=== PATIENT | female | born 1995 | race African-American/Black ===

== ENCOUNTER 2019-01-23 20:32 | Emergency (ER) | payer OTHER ==
[2019-01-23 21:36] LABS: Absolute Lymphocytes (CBC) 3.2 K/uL (0.7-4.9); Basophils % 0.9 % (0-1.3); Hematocrit 35.2 % (36.0-45.0); Lymphocytes % 32.6 % (15.3-44.8); RBC Red Blood Cell Count 4.13 M/uL (3.86-4.86)
[2019-01-23 21:55] LABS: ALT/SGPT 18 U/L (12-78); AST/SGOT 15 U/L (15-37); Albumin 3.5 g/dL (3.4-5.0); Alkaline Phosphatase 69 U/L (45-117); BUN Blood Urea Nitrogen 11 mg/dL (7-18); Bicarbonate 25 mmol/L (21-32); Bilirubin Direct < 0.1 mg/dL (0-0.2); Bilirubin Total 0.1 mg/dL (0.2-1.0); Glucose Level 99 mg/dL (74-106); Potassium 3.6 mmol/L (3.5-5.1); Protein, Total 7.5 g/dL (6.4-8.2); Sodium Level 140 mmol/L (136-145); Troponin (Emerg Dept Use Only) < 0.02 ng/mL (0.0-0.045)
[2019-01-23 22:25] LABS: Urine Blood 2+ (NEG); Urine Glucose NEGATIVE (NEG); Urine Protein NEGATIVE (NEG); Urine Specific Gravity 1.025 (1.005-1.030); Urine pH 6.5 (5.0-7.0)
--- NOTE | 2019-01-23 23:17 | EDPHYS ---
Physician Documentation [facility] Name: Paige Riley Age: 23 yrs Sex: Female : 1995 Arrival Date: 01/23/2019 Time: 20:36 Bed 18 Private MD: ED Physician Rayray Pillai HPI: 01/23 21:39 This 23 yrs old Black Female presents to ER via Ambulatory with complaints of Chest pm1 Pain, with burning x3 days. 21:39 The patient or guardian reports chest pain that is located primarily in the mid-sternal pm1 area. The pain does not radiate. Associated signs and symptoms: Pertinent negatives: cough, headache, nausea, shortness of breath, vomiting. The chest pain is described as burning. Duration: The patient or guardian reports a single episode, that is still ongoing. Modifying factors: The symptoms are alleviated by nothing. the symptoms are aggravated by nothing. Severity of pain: in the emergency department the pain is unchanged. The patient has not experienced similar symptoms in the past. The patient has not recently seen a physician. Historical: - Allergies: 20:43 No Known Allergies; la1 - PMHx: 20:43 None; la1 - Immunization history:: Adult Immunizations up to date. - Social history:: Smoking status: Patient/guardian denies using tobacco. - Ebola Screening: : No symptoms or risks identified at this time. ROS: 21:39 Constitutional: Negative for fever, chills, and weight loss, Eyes: Negative for injury, pm1 pain, redness, and discharge, ENT: Negative for injury, pain, and discharge, Neck: Negative for injury, pain, and swelling. 21:39 Respiratory: Negative for shortness of breath, cough, wheezing, and pleuritic chest pain, Abdomen/GI: Negative for abdominal pain, nausea, vomiting, diarrhea, and constipation, Back: Negative for injury and pain, : Negative for injury, bleeding, discharge, and swelling, MS/Extremity: Negative for injury and deformity, Skin: Negative for injury, rash, and discoloration, Neuro: Negative for headache, weakness, numbness, tingling, and seizure. 21:39 Cardiovascular: Positive for chest pain, Negative for edema, orthopnea, palpitations. Exam: 21:39 Constitutional: This is a well developed, well nourished patient who is awake, alert, pm1 and in no acute distress. Head/Face: Normocephalic, atraumatic. Neck: Trachea midline, no thyromegaly or masses palpated, and no cervical lymphadenopathy. Supple, full range of motion without nuchal rigidity, or vertebral point tenderness. No Meningismus. Cardiovascular: Regular rate and rhythm with a normal S1 and S2. No gallops, murmurs, or rubs. Normal PMI, no JVD. No pulse deficits. Respiratory: Lungs have equal breath sounds bilaterally, clear to auscultation and percussion. No rales, rhonchi or wheezes noted. No increased work of breathing, no retractions or nasal flaring. 21:39 Abdomen/GI: Soft, non-tender, with normal bowel sounds. No distension or tympany. No guarding or rebound. No evidence of tenderness throughout. Back: No spinal tenderness. No costovertebral tenderness. Full range of motion. Skin: Warm, dry with normal turgor. Normal color with no rashes, no lesions, and no evidence of cellulitis. MS/ Extremity: Pulses equal, no cyanosis. Neurovascular intact. Full, normal range of motion. 21:39 Chest/axilla: Inspection: normal, Palpation: tenderness, of the mid-sternal area, that totally reproduces the patient's complaints. 21:39 Neuro: Orientation: is normal, Motor: is normal, moves all fours, Sensation: is normal, no obvious gross deficits, Gait: is steady, at a normal pace, without difficulty. Vital Signs: 20:43 BP 168 / 92; Pulse 98; Resp 16; Temp 97.5; Pulse Ox 98% on R/A; Weight 90.72 kg; Height la1 5 ft. 7 in. (170.18 cm); 22:36 BP 133 / 99; Pulse 81; Resp 16; Pulse Ox 100% on R/A; tr5 20:43 Body Mass Index 31.32 (90.72 kg, 170.18 cm) la1 MDM: 21:13 Patient medically screened. pm1 23:14 Data reviewed: vital signs. Data interpreted: Pulse oximetry: on room air is 100 %. pm1 Interpretation: normal. Counseling: I had a detailed discussion with the patient and/or guardian regarding: the historical points, exam findings, and any diagnostic results supporting the discharge/admit diagnosis, lab results, radiology results, the need for outpatient follow up, to return to the emergency department if symptoms worsen or persist or if there are any questions or concerns that arise at home. 01/24 00:00 ED course: resolution of pain with GI cocktail. pm1 01/23 21:13 Order name: Basic Metabolic Panel; Complete Time: 22:19 pm1 01/23 21:13 Order name: CBC with Diff; Complete Time: 22:19 pm1 01/23 21:13 Order name: LFT's; Complete Time: 22:19 pm1 01/23 21:13 Order name: Troponin (emerg Dept Use Only); Complete Time: 22:19 pm1 01/23 21:42 Order name: CBC Smear Scan EDMS 01/23 22:18 Order name: Urine Dipstick--Ancillary (enter results); Complete Time: 23:14 mw2 01/23 21:13 Order name: XRAY Chest (1 view) pm1 01/23 21:13 Order name: EKG; Complete Time: 21:17 pm1 01/23 21:13 Order name: Cardiac monitoring; Complete Time: 21:15 pm1 01/23 21:13 Order name: EKG - Nurse/Tech; Complete Time: 21:15 pm1 01/23 21:13 Order name: IV Saline Lock; Complete Time: 21:15 pm1 01/23 21:13 Order name: Labs collected and sent; Complete Time: 21:15 pm1 01/23 21:13 Order name: O2 Per Protocol; Complete Time: 21:15 pm1 01/23 21:13 Order name: O2 Sat Monitoring; Complete Time: 21:15 pm1 01/23 21:13 Order name: Urine Dipstick-Ancillary (obtain specimen); Complete Time: 22:07 pm1 01/23 21:13 Order name: Urine Test (obtain specimen); Complete Time: 22:06 pm1 Administered Medications: 01/23 23:51 Drug: GI Cocktail without - (Maalox Suspension 30 ml, Lidocaine Liquid 2 % 15 tr5 ml) Route: PO; Disposition: 01/24 02:37 Co-signature as Attending Physician, Rayray Pillai MD. Disposition: 01/23/19 23:15 Discharged to Home. Impression: Chest pain, unspecified. - Condition is Stable. - Discharge Instructions: Nonspecific Chest Pain. - Medication Reconciliation Form, Thank You Letter, Antibiotic Education, Prescription Opioid Use form. - Follow up: Emergency Department; When: As needed; Reason: Worsening of condition. Follow up: Private Physician; When: 2 - 3 days; Reason: Recheck today's complaints, Continuance of care, Re-evaluation by your physician. - Problem is new. - Symptoms have improved. Signatures: Dispatcher [employer] EDKY Arpan Sheriff RN RN la1 Isiah Toure, SUPERVISOR SCREEN PRINTING SUPERVISOR SCREEN PRINTING pm1 Rayray Pillai MD MD gs Rodriguez, Tommie, RN RN tr5 Corrections: (The following items were deleted from the chart) 00:06 01/23 23:15 01/23/2019 23:15 Discharged to Home. Impression: Chest pain, unspecified. tr5 Condition is Stable. Forms are Medication Reconciliation Form, Thank You Letter, Antibiotic Education, Prescription Opioid Use. Follow up: Emergency Department; When: As needed; Reason: Worsening of condition. Follow up: Private Physician; When: 2 - 3 days; Reason: Recheck today's complaints, Continuance of care, Re-evaluation by your physician. Problem is new. Symptoms have improved. pm1
--- NOTE | 2019-01-23 23:17 | ER ---
Nurse's Notes [facility] Name: Paige Riley Age: 23 yrs Sex: Female : 1995 Arrival Date: 01/23/2019 Time: 20:36 Bed 18 Private MD: Diagnosis: Chest pain, unspecified Presentation: 01/23 20:42 Presenting complaint: Patient states: burning pain in my chest for the last three days la1 and my heart feels like its beating fast. Transition of care: patient was not received from another setting of care. Onset of symptoms was January 23, 2019. Risk Assessment: Do you want to hurt yourself or someone else? Patient reports no desire to harm self or others. Initial Sepsis Screen: Does the patient meet any 2 criteria? No. Patient's initial sepsis screen is negative. Does the patient have a suspected source of infection? No. Patient's initial sepsis screen is negative. Care prior to arrival: None. 20:42 Method Of Arrival: Ambulatory la1 20:42 Acuity: AKBAR 3 la1 Historical: - Allergies: 20:43 No Known Allergies; la1 - PMHx: 20:43 None; la1 - Immunization history:: Adult Immunizations up to date. - Social history:: Smoking status: Patient/guardian denies using tobacco. - Ebola Screening: : No symptoms or risks identified at this time. Screenin:45 Abuse screen: Denies threats or abuse. Nutritional screening: No deficits noted. tr5 Tuberculosis screening: No symptoms or risk factors identified. Fall Risk None identified. Assessment: 20:56 General: Appears comfortable, Behavior is calm, cooperative. Pain: Complains of pain in tr5 anterior aspect of left upper chest, mid-sternal area and left breast Pain radiates to left scapular area Pain began 2-3 days ago. Is intermittent, Alleviated by repositioning, Aggravated by increased activity. Neuro: Level of Consciousness is awake, alert, Oriented to person, place, time, Swimming Pool Maintenance are equal bilaterally. Cardiovascular: Heart tones present Bruits absent Capillary refill < 3 seconds Pulses are all present. Edema is absent. Cardiovascular: Reports chest pain. Respiratory: Airway is patent Trachea midline Respiratory effort is even, unlabored, Respiratory pattern is regular, symmetrical, Breath sounds are clear bilaterally. GI: No signs and/or symptoms were reported involving the gastrointestinal system. : No signs and/or symptoms were reported regarding the genitourinary system. EENT: No signs and/or symptoms were reported regarding the EENT system. Derm: No signs and/or symptoms reported regarding the dermatologic system. Skin is intact, Skin is dry, Skin is normal. Musculoskeletal: Capillary refill < 3 seconds, Range of motion: intact in all extremities. 21:43 Reassessment: Patient and/or family updated on plan of care and expected duration. Pain tr5 level reassessed. Patient is alert, oriented x 3, equal unlabored respirations, skin warm/dry/pink. 22:35 Reassessment: Patient and/or family updated on plan of care and expected duration. Pain tr5 level reassessed. Patient is alert, oriented x 3, equal unlabored respirations, skin warm/dry/pink. Patient denies pain at this time. Vital Signs: 20:43 BP 168 / 92; Pulse 98; Resp 16; Temp 97.5; Pulse Ox 98% on R/A; Weight 90.72 kg; Height la1 5 ft. 7 in. (170.18 cm); 22:36 BP 133 / 99; Pulse 81; Resp 16; Pulse Ox 100% on R/A; tr5 20:43 Body Mass Index 31.32 (90.72 kg, 170.18 cm) la1 ED Course: 20:36 Patient arrived in ED. es 20:40 EKG done, by ED staff. tr5 20:43 Triage completed. la1 20:43 Arm band placed on right wrist. la1 20:45 Placed in gown. Bed in low position. Call light in reach. Side rails up X 1. Cardiac tr5 monitor on. Pulse ox on. NIBP on. Door closed. Noise minimized. 20:47 Jose Carey, BRANDEN is Primary Nurse. tr5 21:09 Isiah Toure NP is PHCP. pm1 21:09 Rayray Pillai MD is Attending Physician. pm1 21:20 Inserted saline lock: 22 gauge in left antecubital area, using aseptic technique. tr5 21:30 Initial lab(s) drawn, by me, sent to lab. tr5 21:44 Awaiting lab results. tr5 21:46 Assisted to bathroom. tr5 22:09 Urine collected: clean catch specimen, clear. tr5 22:32 XRAY Chest (1 view) In Process Unspecified. EDMS 22:38 Awaiting radiology results. tr5 Administered Medications: 23:51 Drug: GI Cocktail without - (Maalox Suspension 30 ml, Lidocaine Liquid 2 % 15 tr5 ml) Route: PO; Outcome: 23:15 Discharge ordered by . pm1 01/24 00:06 Patient left the ED. tr5 Signatures: Dispatcher [employer] EDMS Christy Mittal Lee, RN RN la1 Isiah Toure, PRODUCE ASSISTANT PRODUCE ASSISTANT pm1 Jose Carey RN RN tr5 Corrections: (The following items were deleted from the chart) 01/23 22:39 22:38 Awaiting re-evaluation by ER provider, tr5 tr5
[2019-01-23] MEDS ORDERED: LIDOCAINE VISCOUS 2% SOLN 15 ML UDC ONE (23:53)
[2019-01-23] MEDS ORDERED: MAGNE/ALUM HYDROXD 30 ML UCUP ONE (23:53)
--- NOTE | 2019-01-24 09:14 | RAD REPORT ---
EXAM DESCRIPTION: RAD - Chest Single View - 01/23/2019 10:28 pm CLINICAL HISTORY: Chest pain COMPARISON: None. TECHNIQUE: AP portable chest image was obtained 2221 hours . FINDINGS: Lungs are clear. Heart and vasculature are normal. No measurable pleural effusion and no p neumothorax. No acute bony abnormality seen. No acute aortic findings suspected. IMPRESSION: No acute cardiopulmonary process.
--- NOTE | 2019-01-24 10:20 | EKG ---
Test Date: 2019-01-23 Test Time: 21:05:03 Sheet Metal Fabricator: NEIDA MEASUREMENT RESULTS: Intervals: Rate: 93 VT: 160 QRSD: 90 QT: 362 QTc: 450 [place]: P: 108 VT: 160 QRS: 139 T: 140 INTERPRETIVE STATEMENTS: Suspect arm lead reversal, interpretation assumes no reversal Normal sinus rhythm Right axis deviation Abnormal ECG No previous ECG available for comparison Electronically Signed On 01-24-19 10:20:19 CDT by Asher Rice
== END 2019-01-24 00:06 | disposition home or self-care (01) ==
LOC: ER 20:32
DX: R07.9 Chest pain, unspecified (principal)
CPT/HCPCS: 36415; 71045; 80048; 80076; 81003; 84484; 85025; 93005; 99284

== ENCOUNTER 2021-08-23 17:07 | Emergency (ER) | payer OTHER, SELFPAY ==
--- NOTE | 2021-08-23 18:13 | EDPHYS ---
Physician Documentation [facility] Name: Paige Riley Age: 26 yrs Sex: Female : 1995 Arrival Date: 08/23/2021 Time: 17:10 Bed 12 Private MD: ED Physician Gatito Asencio HPI: 08/23 17:22 This 26 yrs old Black Female presents to ER via Ambulatory with complaints of Tonsils cp swollen/painful. 17:22 The patient presents with sore throat. cp 17:22 Onset: The symptoms/episode began/occurred 2 day(s) ago. Associated signs and symptoms: cp Pertinent positives: earache, Pertinent negatives cough, fever, flu-like symptoms, headache. Patient reports history of right side tonsillar abscess that required drainage. 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 - Social history:: Smoking status: Patient denies any tobacco usage or history of. Patient/guardian denies using alcohol. ROS: 17:22 Eyes: Negative for injury, pain, redness, and discharge. cp 17:22 Constitutional: Negative for body aches, chills, fever, poor PO intake. 17:22 ENT: Positive for ear pain, sore throat, Negative for drainage from ear(s), difficulty swallowing, difficulty handling secretions. 17:22 Cardiovascular: Negative for chest pain. 17:22 Respiratory: Negative for cough, shortness of breath, wheezing. 17:22 Abdomen/GI: Negative for abdominal pain, nausea, vomiting, and diarrhea. 17:22 Neuro: Negative for altered mental status, headache, weakness. 17:22 All other systems are negative. Exam: 17:25 Head/Face: Normocephalic, atraumatic. cp 17:25 Constitutional: The patient appears in no acute distress, alert, awake, non-toxic, well developed, well nourished. 17:25 Eyes: Periorbital structures: appear normal, Conjunctiva: normal, no exudate, no injection, Sclera: no appreciated abnormality, Lids and lashes: appear normal, bilaterally. 17:25 ENT: External ear(s): are unremarkable, Ear canal(s): are normal, clear, TM's: dullness, bilaterally, Nose: is normal, Mouth: Lips: moist, Oral mucosa: moist, Tongue: is normal, Posterior pharynx: Airway: no evidence of obstruction, patent, Tonsils: with erythema, right enlarged, no exudate, Uvula: midline, erythema, that is mild, exudate, is not appreciated, Voice: is normal. 17:25 Neck: ROM/movement: is normal, is supple, without pain, no range of motions limitations, no meningismus. 17:25 Chest/axilla: Inspection: normal. 17:25 Cardiovascular: Rate: tachycardic. 17:25 Respiratory: the patient does not display signs of respiratory distress, Respirations: normal, no use of accessory muscles, no retractions, labored breathing, is not present. Vital Signs: 17:15 BP 162 / 105; Pulse 104; Resp 18; Temp 98.1(O); Pulse Ox 99% on R/A; Weight 91.63 kg; ld1 Height 5 ft. 7 in. (170.18 cm); Pain 6/10; 17:15 Body Mass Index 31.64 (91.63 kg, 170.18 cm) ld1 MDM: 17:17 Patient medically screened. cp 17:45 Differential diagnosis: group A strep tonsillitis, mononucleosis, peritonsillar abscess cp pharyngitis, retropharyngeal abcess tonsillitis, uvulitis. 18:12 Data reviewed: vital signs, nurses notes, lab test result(s). cp 18:12 Counseling: I had a detailed discussion with the patient and/or guardian regarding: the cp historical points, exam findings, and any diagnostic results supporting the discharge/admit diagnosis, lab results, to return to the emergency department if symptoms worsen or persist or if there are any questions or concerns that arise at home. 08/23 17:41 Order name: Group A Streptococcus Rapid Sc EDMS Administered Medications: No medications were administered Disposition: 20:43 Co-signature as Attending Physician, Gatito Asencio DO I agree with the assessment and ms3 plan of care. Disposition Summary: 08/23/21 18:13 Discharge Ordered Location: Home cp Problem: new cp Symptoms: are unchanged cp Condition: Stable cp Diagnosis - Acute tonsillitis, unspecified cp Followup: cp - With: Private Physician - When: 2 - 3 days - Reason: Worsening of condition Discharge Instructions: - Discharge Summary Sheet cp - Tonsillitis cp Forms: - Medication Reconciliation Form cp - Thank You Letter cp - Antibiotic Education cp - Prescription Opioid Use cp Prescriptions: - Augmentin 875-125 mg Oral Tablet - take 1 tablet by ORAL route every 12 hours for 10 days; 20 tablet; Refills: 0, cp Product Selection Permitted Signatures: Dispatcher [employer] EDMS Matti Alexandra PA PA cp Sims, Marcus, DO DO ms3 Concha Blakely RN RN ld1 Corrections: (The following items were deleted from the chart) 18:03 17:58 Throat Culture ordered. EDMS EDMS
--- NOTE | 2021-08-23 18:13 | ER ---
Nurse's Notes [facility] Name: Paige Riley Age: 26 yrs Sex: Female : 1995 Arrival Date: 08/23/2021 Time: 17:10 Bed 12 Private MD: Diagnosis: Acute tonsillitis, unspecified Presentation: 08/23 17:15 Chief complaint: Patient states: Went to ER 07/31/2021 in clear jaeger due to tonsil ld1 abscess - cut it open, received medications. Now throat is hurting. Coronavirus screen: At this time, the client does not indicate any symptoms associated with coronavirus-19. Ebola Screen: No symptoms or risks identified at this time. Initial Sepsis Screen: Does the patient meet any 2 criteria? No. Patient's initial sepsis screen is negative. Does the patient have a suspected source of infection? No. Patient's initial sepsis screen is negative. Risk Assessment: Do you want to hurt yourself or someone else? Patient reports no desire to harm self or others. Onset of symptoms was August 23, 2021. 17:15 Method Of Arrival: Ambulatory ld1 17:15 Acuity: AKBAR 4 ld1 Triage Assessment: 17:16 General: Appears in no apparent distress. comfortable, Behavior is calm, cooperative, ld1 appropriate for age. Pain: Complains of pain in uvula Pain does not radiate. Neuro: Level of Consciousness is awake, alert, obeys commands, Oriented to person, place, time, situation. Respiratory: Airway is patent Respiratory effort is even, unlabored, Respiratory pattern is regular, symmetrical. 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 - Social history:: Smoking status: Patient denies any tobacco usage or history of. Patient/guardian denies using alcohol. Screenin:43 Abuse screen: Denies threats or abuse. Nutritional screening: No deficits noted. ss7 Tuberculosis screening: No symptoms or risk factors identified. Fall Risk None identified. Assessment: 17:43 General: Appears uncomfortable, Behavior is calm, cooperative, appropriate for age. ss7 Pain: Complains of pain in throat. Neuro: No deficits noted. Cardiovascular: Heart tones S1 S2. Respiratory: Breath sounds are clear bilaterally. GI: No deficits noted. : No deficits noted. EENT: Throat is reddened has enlarged tonsils. Derm: No deficits noted. Musculoskeletal: No deficits noted. Vital Signs: 17:15 BP 162 / 105; Pulse 104; Resp 18; Temp 98.1(O); Pulse Ox 99% on R/A; Weight 91.63 kg; ld1 Height 5 ft. 7 in. (170.18 cm); Pain 6/10; 17:15 Body Mass Index 31.64 (91.63 kg, 170.18 cm) ld1 ED Course: 17:10 Patient arrived in ED. kz 17:12 Matti Alexandra PA is PHCP. cp 17:12 Gatito Asencio DO is Attending Physician. cp 17:16 Triage completed. ld1 17:16 Arm band placed on right wrist. ld1 17:18 Eli Ashley, RN is Primary Nurse. ss7 17:43 Patient has correct armband on for positive identification. Call light in reach. ss7 17:43 No provider procedures requiring assistance completed. ss7 17:45 Group A Streptococcus Rapid Sc Sent. ss7 18:19 Patient did not have IV access during this emergency room visit. ss7 Administered Medications: No medications were administered Outcome: 18:13 Discharge ordered by MD. cp 18:19 Discharged to home ambulatory. ss7 18:19 Condition: good 18:19 Discharge instructions given to patient, Instructed on discharge instructions, follow up and referral plans. Demonstrated understanding of instructions, follow-up care, medications. 18:25 Patient left the ED. ss7 Signatures: Matti Alexandra PA PA cp Concha Blakely RN RN ld1 Eli Ashley RN RN 7 Elena Quiroga
[2021-08-23] MEDS ORDERED: AMOX/K CLAV 875 MG TAB ONE (18:26)
[2021-08-23 19:17] VITALS: BP 162/105; TEMP 98.1; O2SAT 99
== END 2021-08-23 18:25 | disposition home or self-care (01) ==
LOC: ER 17:07
DX: J03.90 Acute tonsillitis, unspecified (principal)
CPT/HCPCS: 87081; 99283